=== PATIENT | male | born 1990 | race Caucasian/White ===

== ENCOUNTER 2017-06-23 03:33 | Emergency (ER) | payer BC, OTHER ==
[~2017-06-23] VITALS: Ht 172.7 cm; Wt 68.0 kg
[2017-06-23 03:38] VITALS: TEMP 37.1; Ht 172.7 cm; Wt 68.0 kg
[2017-06-23] MEDS ORDERED: LIDO/EPINEPHRINE/SOD BICARB 20 ML VIAL INFIL ONE (03:48)
[2017-06-23] MEDS ORDERED: AMOX875T PO (04:01)
--- NOTE | 2017-06-23 04:01 | EMERGENCY ROOM VISIT NOTE ---
History First contact with patient: 03:42 Chief Complaint: FOREIGNBODY ANY BODY PART Stated Complaint: SPLINTER IN FOOT History of Present Illness The patient is a 26 year old male who presents to the Emergency Room with complaints of splinter in right foot for the past half hour. Patient accidentally stepped on a toothpick. He tried to get it out and was unsuccessful. Tetanus is current. Patient denies fevers, drainage, numbness, tingling, weakness of the extremity. Review of Systems A 6 system review of systems was completed with positives and pertinent negatives listed in the HPI. Past Medical/Surgical History None Social History Smoking Status: Current Every Day Smoker Drug Use: none Marital Status: in relationship Occupation Status: employed Physical Exam Vital Signs Date Time Temp Pulse Resp B/P (MAP) Pulse Ox O2 Delivery O2 Flow Rate FiO2 06/23/17 03:38 37.1 79 16 132/80 97 Room Air Physical Exam VITALS: Vitals are noted on the nurse's note and reviewed by myself. Vital signs stable. GENERAL: Pleasant male, in no acute distress, nondiaphoretic, well-developed well-nourished. SKIN: Capillary reflex less than 2 seconds. HEENT: Normocephalic. PERRLA. EOMI. MUSCULOSKELETAL: No gross musculoskeletal defects. No pedal edema. No calf tenderness. Right plantar fascia with toothpick sticking out, tender to palpation without drainage, erythema or warmth. Pedal pulses +2 equal and present bilaterally. NEURO: Patient was alert and oriented to person place and time. Normal sensation to light and sharp touch. No focal neurological deficits. Medical Decision & Procedures ED Course Prior records reviewed and summarized as above. Triage Nursing notes reviewed. Additional history obtained from family The patient's history was concerning for foreign body in the foot Differential diagnosis: Etiologies such as foreign body in the foot, cellulitis, abscess, MRSA infection , as well as others were entertained. Physical examination: as above ER treatment provided: Patient gave verbal consent and the bottom of the foot was cleansed with Betadine. Lidocaine 2 mL's was injected around the foreign body and using needle drivers the wooden toothpick was removed. There is cleansed with bacitracin and bandage. hemostasis was achieved. Patient tolerated procedure well. Patient states tetanus is current. On reassessment the patient felt better. Diagnostics interpreted by me: Deferred This appears to be isolated foreign body of the foot. This was removed. The toothpick was on the ground for a while. It was a puncture. He was started on antibiotics. He was counseled on wound care. Patient was advised to follow-up family care in a few days here in the ER sooner for fevers, redness, drainage, worsening signs or symptoms or as needed. Patient was neurovascularly and neurologically intact. He is well-appearing. No other injuries. By the evaluation outlined above emergent etiologies such as abscess, necrotizing fasciitis, as well as others were deemed relatively unlikely. The pt informed about the findings as listed above. All questions were answered and pleased with the treatment. Return instructions were outlined and the patient was discharged in stable condition. Outpatient prescription management: Augmentin Referral: The patient was referred back to primary care physician for follow-up in 2 to 3 days for a recheck of the current condition. The chart was completed utilizing [employer] Speech voice recognition software. Grammatical errors, random word insertions, pronoun errors, and incomplete sentences are an occassional consequence of this system due to software limitations, ambient noise, and hardware issues. Any formal questions or concerns about the content, text, or information contained within the body of this dictation should be directly addressed to the physician surgeon assistant for clarification. Medical Decision As above Medication Reconcilliation Current Medication List: was personally reviewed by me Blood Pressure Screening Patient's blood pressure: Normal blood pressure Impression Primary Impression: Foreign body in right foot Departure Information Dispostion Home / Self-Care Condition GOOD Referrals No Doctor, Assigned (PCP) Patient Instructions My [facility] Additional Instructions Antibiotic ointment and bandage to the areas until healed. Follow up with family doctor or return for any signs of infection (increasing redness, swelling , drainage, or fever). Keep covered when in sun until fully healed then SPF 50 or higher until scar healed. Amoxicillin Clavulanate (Augmentin) 875mg: Take one pill twice daily for 7 days. All antibiotics can cause diarrhea. If this occurs and you feel worse or it does not resolve in 1-2 days follow up with your doctor or return to the Emergency Department as this could be signs of serious underlying problems. Any medication can cause an allergic reaction, stop the pills immediately and return to the ER for rash, hives, breathing difficulties, or swelling. Ibuprofen(Motrin, Advil) may be used for fever or pain. Use 600mg every six hours as needed. Take with food. Avoid using more than 2400mg in a 24 hour period. Do not use 2400mg per day for more than three consecutive days without physician direction. Prolonged inappropriate use can lead to stomach upset or ulcers. (AND/OR) Acetaminophen(Tylenol) may be used for fever or pain. Use 1000mg every six hours as needed. Avoid using more than 3000mg in a 24 hour period. Rest and drink plenty of fluids. Continue current medications. Return to the ER for severe pain, fevers, spreading redness, or any worsening of your condition. Follow up with your primary physician within 2-3 days for a recheck of the current condition. Problem Qualifiers Primary Impression: Foreign body in right foot Encounter type: initial encounter Qualified Codes: S90.851A - Superficial foreign body, right foot, initial encounter
[2017-06-23 04:10] VITALS: BP 124/78; PULSE 79; O2SAT 97
== END 2017-06-23 04:11 | disposition home or self-care (01) ==
LOC: C.EDB 03:35
DX: S90.851A Superficial foreign body, right foot, initial encounter (principal); W26.8XXA Contact with other sharp object(s), not elsewhere classified, initial encounter; F17.200 Nicotine dependence, unspecified, uncomplicated